=== PATIENT | female | born 1960 | race African-American/Black ===

== ENCOUNTER 2018-02-17 21:13 | Emergency (ER) | payer OTHER ==
[~2018-02-17] VITALS: Ht 152.4 cm; Wt 87.1 kg
[~2018-02-17 21:13] MED LIST: FISH OIL300 MG PO; HUMIRA10 MG/0.2 SQ; KEFLEX500 MG PO; NAPROSYN500 MG PO; PREDNISONE 20 M20 MG PO; PREDNISONE 5 MG5 M1 PO; VITAMIN D1000 UNI1 PO
[2018-02-17] MEDS ORDERED: ASPIR 8181 MG PO (22:39)
[2018-02-17] MEDS ORDERED: OSTEO BI-FLEX1 EAC4 PO (22:40)
[2018-02-17 23:04] LABS: ABSOLUTE NEUTROPHILS 4.1 thou/uL (1.4-8.2); BASOPHILS 0.5 % (0.0-2.0); EOSINOPHILS 1.2 % (0.0-3.0); HEMATOCRIT 31.8 % (37.0-47.0); HEMOGLOBIN 9.8 gm/dL (12.0-15.0); LYMPHOCYTES 38.9 % (24.0-44.0); MCH 19.7 pg (26.0-34.0); MCHC 30.9 g/dL (28.0-37.0); MCV 63.7 fL (80.0-100.0); MONOCYTES 9.3 % (1.0-8.0); PLATELET COUNT 209 thou/uL (150-400); POLYS 50.1 % (36.0-66.0); WBC 8.1 thou/uL (4.0-11.0)
[2018-02-17 23:14] LABS: CALCIUM 10.1 mg/dL (8.5-10.1); CREATININE 0.7 mg/dL (0.6-1.0); POTASSIUM 3.4 mmol/L (3.5-5.1)
[2018-02-17] MEDS ORDERED: PREDNISONE 20 M20 MG PO (23:43)
[2018-02-17] MEDS ORDERED: ONDANSETRON HCL4 M2 PO (23:43)
[2018-02-17] MEDS ORDERED: HYDROCODONE-AP1 EAC6 PO (23:43)
[2018-02-18 00:02] VITALS: BP 154/55
[2018-02-18 00:04] LABS: ANISOCYTOSIS 2+; HYPOCHROMASIA 1+; MICROCYTES 2+
== END 2018-02-18 00:05 | disposition home or self-care (01) ==
LOC: ER 21:13
PROVIDERS: Nurse Practitioner Family
DX: M25.461 Effusion, right knee (principal); M06.9 Rheumatoid arthritis, unspecified

== ENCOUNTER 2019-06-16 18:38 | Emergency (ER) | payer OTHER ==
[~2019-06-16] VITALS: Ht 160 cm; Wt 84.8 kg
[~2019-06-16 18:38] MED LIST changes: +ASPIR 8181 MG PO; +HYDROCODONE-AP1 EAC6 PO; +ONDANSETRON HCL4 M2 PO; +OSTEO BI-FLEX1 EAC4 PO
[2019-06-16 19:36] LABS: URINE BLOOD 3+ (Negative); URINE CLARITY CLOUDY; URINE COLOR BROWN; URINE GLUCOSE-RANDOM* NEGATIVE (Negative); URINE KETONES NEGATIVE (Negative); URINE LEUKOCYTES-REFLEX TRACE (Negative); URINE NITRITE-REFLEX NEGATIVE (Negative); URINE PROTEIN (DIPSTICK) 2+ (Negative); URINE SPECIFIC GRAVITY >= 1.030 (1.005-1.035)
[2019-06-16 19:38] LABS: ICTOTEST (BILI CONFIRMATORY) Negative (Negative); URINE BILIRUBIN NEGATIVE (Negative)
[2019-06-16 19:41] LABS: MUCUS >6 Heavy strn/LPF (None Seen); SQUAMOUS >10 Many /LPF (0-3); URINE RBC >20 Many /HPF (0-2)
[2019-06-16 19:42] LABS: CRYSTALS None Seen /LPF (None Seen); URINE WBC-REFLEX 0-5 Rare /HPF (0-5)
[2019-06-16 19:43] LABS: CASTS None Seen /LPF (None Seen)
[2019-06-16 20:24] LABS: ABSOLUTE NEUTROPHILS 4.2 thou/uL (1.4-8.2); BASOPHILS 0.4 % (0.0-2.0); EOSINOPHILS 0.7 % (0.0-3.0); HEMATOCRIT 34.5 % (37.0-47.0); HEMOGLOBIN 10.8 gm/dL (12.0-15.0); LYMPHOCYTES 31.2 % (24.0-44.0); MCH 20.5 pg (26.0-34.0); MCHC 31.3 g/dL (28.0-37.0); MCV 65.5 fL (80.0-100.0); MONOCYTES 8.9 % (1.0-8.0); PLATELET COUNT 196 thou/uL (150-400); POLYS 58.8 % (36.0-66.0); RBC 5.27 mil/uL (4.20-5.00); RDW 16.7 % (10.5-14.5); WBC 7.2 thou/uL (4.0-11.0)
[2019-06-16 20:35] LABS: CREATININE 1.1 mg/dL (0.6-1.0)
[2019-06-16 20:41] LABS: TOTAL BILIRUBIN 0.3 mg/dL (<0.1-1.0); TOTAL PROTEIN 8.2 g/dL (6.4-8.2)
[2019-06-16 21:03] LABS: ANISOCYTOSIS 1+; HYPOCHROMASIA 2+; MICROCYTES 2+
[2019-06-16] MEDS ORDERED: NORCO 5-325 TA1 EAC1 PO (22:31)
[2019-06-16] MEDS ORDERED: SENNA-DOCUSATE1 EAC1 PO (22:31)
[2019-06-16] MEDS ORDERED: IBUPROFEN 600600 M1 PO (22:31)
[2019-06-16] MEDS ORDERED: ZOFRAN ODT4 MG PO (22:31)
[2019-06-16 22:55] VITALS: BP 132/62
== END 2019-06-16 22:58 | disposition home or self-care (01) ==
LOC: ER 18:38
PROVIDERS: Emergency Medicine
DX: N13.2 Hydronephrosis with renal and ureteral calculous obstruction (principal); R11.2 Nausea with vomiting, unspecified; Z88.0 Allergy status to penicillin